=== PATIENT | female | born 1945 | race Caucasian/White ===

== ENCOUNTER → 2017-09-02 | Outpatient (CLI) | payer MEDICARE, MEDICAID ==
[~2017-09-02] MED LIST: ALBUTEROL2.5 MG/NEB IH; ALLERGY10 MG PO; ARICEPT 5MG TAB5 MG PO; CIPRO 500MG TA500 MG PO; CLINDAMYCIN HC300 MG PO; DARVOCET-N6 EACH/PAK PO; DIOVAN160 MG PO; FERROUS SULFAT325 M1 PO; FLAGYL500 MG PO; HYDROXYZINE 25M25 MG PO; IPRATROPIUM BROM3 M1 INH; MACROBID 100MG100 MG PO; MULTI VITAMINS1 CTB PO; MUPIROCIN2% TP; NAPROXEN SODIU500 MG PO; NASONEX0.05 MG/AC; NEXIUM40 MG PO; NITRO BID PO; PRAVASTATIN 40M40 MG PO; SERTRALINE 50MG50 MG PO; SERTRALINE100 MG PO; VENTOLIN H0.09 MG/AC IH; ZOFRAN4 MG PO
--- NOTE | 2017-09-02 17:25 | RADIOLOGY REPORT PS360 ---
PROCEDURE: 2-D M-mode and color Doppler study INDICATIONS FOR THE TEST: Chest pain+ COPD + Heart Murmur Tobacco Smoking Palpitations Fatigue Syncope Edema Hypertension+Diabetes Mellitus Rheumatic Fever SOB+TONG+Obesity+Hyperlipidemia+ Family History HD Additional History cough PATIENT INFORMATION HEIGHT: 60 WEIGHT:175 GENDER: Female B/P:165/82 2-D/M-MODE INTERPRETATION: 2-D MEASUREMENTS OBSERVED VALUES IN CMS Right Ventricular Dimension (RVDd) 2.0 Interventricular Septum (Thickness)(IVsd) 1.2 Left Ventricular Internal Dimensions(LVIDd) 3.3 Left Ventricular Posterior Wall (Thickness)(LVPWd) 1.2 Aortic Root 3.2 Aortic Cusp Separation 2.0 Left Atrial Dimensions (LAD) 3.8 2D 1. This is technically difficult study because of the patient's factor and poor acoustic windows. 2. The left atrium is mildly enlarged, left ventricle is normal size, there is mild concentric left ventricular hypertrophy, visually estimated ejection fraction 55% with no obvious regional wall motion abnormality. 3. The right atrium and right ventricle are normal size and contractility. 4. The aortic valve is minimally thickened and fibrosed. 5. The mitral and tricuspid valve leaflets are minimally thickened. 6. No significant pericardial effusion noted. DOPPLER INTERROGATION: Doppler interrogation of the aortic, mitral and tricuspid valvular presence of mild aortic, mild mitral and tricuspid regurgitation, tricuspid regurgitant jet velocity insufficient for calculation of the right ventricular systolic pressure, grade 1 diastolic dysfunction seen without tissue Doppler evidence of raised left atrial pressure. CONCLUSION: 1. Mildly enlarged left atrium, normal left ventricular size, mild concentric left ventricular hypertrophy, visually estimated ejection fraction 55% with no obvious regional wall motion abnormality. Grade 1 diastolic dysfunction seen without tissue Doppler evidence of raised left atrial pressure. 2. Mild aortic, mild mitral and tricuspid regurgitation. 3. No significant pericardial effusion noted.
== END ==
LOC: RT 10:39
DX: R06.02 Shortness of breath (principal); R93.8 Abnormal findings on diagnostic imaging of other specified body structures